=== PATIENT | female | born 1955 | race Two or more races ===

== ENCOUNTER 2021-12-27 12:18 | Inpatient (IN) | payer OTHER ==
[~2021-12-27] VITALS: Ht 152.4 cm; Wt 147.4 kg
[2021-12-29] MEDS ORDERED: XARELTO20 M1 (13:14)
[2021-12-29] MEDS ORDERED: METOPROLOL SUC100 MG (13:14)
[2021-12-29] MEDS ORDERED: SILVER SULFADIA50 GM (13:14)
[2021-12-29] MEDS ORDERED: DICLOFENAC POTA50 MG (13:14)
[2021-12-29] MEDS ORDERED: DICLOFENAC SOD100 GM (13:14)
[2021-12-29] MEDS ORDERED: AMLODIPINE BESY10 MG (13:14)
== END 2022-01-11 22:24 | disposition home or self-care (01) | DRG 593 ==
LOC: ER 12:18 → MEDJ 12-28 22:30
PROVIDERS: ADMIT Internal Medicine; ATTEND Internal Medicine
PROC: BW28ZZZ Computerized Tomography (CT Scan) of Head (ICD-10-PCS; 2021-12-28)
PROC: 4A12X4Z Monitoring of Cardiac Electrical Activity, External Approach (ICD-10-PCS; 2021-12-29)
PROC: B24BZZZ Ultrasonography of Heart with Aorta (ICD-10-PCS; 2021-12-30)
PROC: 02HV33Z Insertion of Infusion Device into Superior Vena Cava, Percutaneous Approach (ICD-10-PCS; 2022-01-04)
PROC: 0HD6XZZ Extraction of Back Skin, External Approach (ICD-10-PCS; principal; 2022-01-08)
PROC: 0HDLXZZ Extraction of Left Lower Leg Skin, External Approach (ICD-10-PCS; 2022-01-08)
PROC: BW21YZZ Computerized Tomography (CT Scan) of Abdomen and Pelvis using Other Contrast (ICD-10-PCS; 2022-01-08)
DX: L89.124 Pressure ulcer of left upper back, stage 4 (principal); L03.116 Cellulitis of left lower limb; L03.313 Cellulitis of chest wall; L03.311 Cellulitis of abdominal wall; I48.92 Unspecified atrial flutter; N17.8 Other acute kidney failure; L03.115 Cellulitis of right lower limb; L08.9 Local infection of the skin and subcutaneous tissue, unspecified; E87.6 Hypokalemia; R60.1 Generalized edema; K42.9 Umbilical hernia without obstruction or gangrene; E66.01 Morbid (severe) obesity due to excess calories; K59.09 Other constipation; Z20.822 Contact with and (suspected) exposure to COVID-19; Z74.01 Bed confinement status; B96.4 Proteus (mirabilis) (morganii) as the cause of diseases classified elsewhere; B95.61 Methicillin susceptible Staphylococcus aureus infection as the cause of diseases classified elsewhere; B95.2 Enterococcus as the cause of diseases classified elsewhere; B96.89 Other specified bacterial agents as the cause of diseases classified elsewhere; I50.810 Right heart failure, unspecified

== ENCOUNTER 2023-06-09 13:28 | Inpatient (IN) | payer OTHER ==
[~2023-06-09] VITALS: Ht 162.6 cm; Wt 181.4 kg
[~2023-06-09 13:28] MED LIST: AMLODIPINE BESY10 MG; DICLOFENAC POTA50 MG; DICLOFENAC SOD100 GM; METOPROLOL SUC100 MG; SILVER SULFADIA50 GM; XARELTO20 M1
[2023-06-09] MEDS ORDERED: 0.9 % SODIUM CHLORIDE 1,000 ML IV STA (14:30)
[2023-06-09 17:03] LABS: HEMATOCRIT 45.5 % (36.0-45.00); HEMOGLOBIN 15.4 g/dL (12.0-15.00); MEAN CORPUSCULAR HEMOGLOBIN 29.8 pg (27.00-32.0); MEAN CORPUSCULAR HGB CONC 33.8 g/dl (32.0-36.0); PLATELET COUNT 160 K/uL (150-450); RED BLOOD COUNT 5.17 M/uL (4.00-6.00); RED CELL DISTRIBUTION WIDTH 14.3 % (11.5-14.5)
[2023-06-09 17:21] LABS: INR 1.02; PARTIAL THROMBOPLASTIN TIME 22.8 SECONDS (22.0-34.0); PROTHROMBIN TIME 10.7 SECONDS (9.0-11.5)
[2023-06-09 17:27] LABS: ALBUMIN 2.8 gm/dL (3.4-5.0); BILIRUBIN TOTAL 0.68 mg/dL (0.3-1.2); BILIRUBIN,CONJUGATED 0.17 mg/dL (0.0-0.2); BILIRUBIN,UNCONJUGATED 0.51 mg/dL (0.0-0.6); CREATININE SERUM 0.94 mg/dL (0.55-1.02); GFR 59.04; TOTAL PROTEIN 6.9 gm/dL (6.4-8.2)
[2023-06-09 17:59] LABS: POTASSIUM 2.91 mEq/L (3.5-5.1)
[2023-06-10] MEDS ORDERED: IPRATROPIUM BROMIDE 0.5 MG/2.5 ML AMPUL.NEB IH SCH
[2023-06-10] MEDS ORDERED: hydrALAZINE HCL 20 MG VIAL IV PRN (00:15)
[2023-06-10] MEDS ORDERED: 0.9 % SODIUM CHLORIDE 1,000 ML IV SCH (00:15)
[2023-06-10] MEDS ORDERED: ACETAMINOPHEN 500 MG GEL..CAP PO PRN (00:15)
[2023-06-10] MEDS ORDERED: INSULIN LISPRO 1,000 UNIT/10 ML UNITS SUBCUTANEO PRN (00:15)
[2023-06-10] MEDS ORDERED: ONDANSETRON HCL 4 MG in 0.9 % SODIUM CHLORIDE 50 ML IV PRN (00:15)
[2023-06-10] MEDS ORDERED: DEXTROSE 50 % IN WATER 0.5 G/ML DISP.SYRIN IV PRN (00:15)
[2023-06-10] MEDS ORDERED: POTASSIUM CHLORIDE IN WATER 100 ML IV SCH (01:00)
[2023-06-10] MEDS ORDERED: CLINDAMYCIN PHOSPHATE 600 MG in 0.9 % SODIUM CHLORIDE 50 ML IV SCH (01:00)
[2023-06-10 02:04] LABS: LDH 349 U/L (84-246); PHOSPHOKINASE CREATININE 166 U/L (26-192)
[2023-06-10 02:55] LABS: ABG PH 7.321 (7.35-7.45)
[2023-06-10 02:56] LABS: ABG PO2 62.5 mmHg (80-100); ABG pCO2 67.1 mmHg (35-45); BASE EXCESS 5.3 mmol/l; BICARBONATE 33.9 mmol/l (23-25); Tco2 35.9 mmol/l; allen test SATISFACTORY; o2 21 %; puncture site RADIAL RIGHT
[2023-06-10 02:57] LABS: SaO2 89.8 %
[2023-06-10] MEDS ORDERED: FAMOTIDINE/PF 20 MG in 0.9 % SODIUM CHLORIDE 8 ML IV PUSH SCH (09:00)
[2023-06-10] MEDS ORDERED: ENOXAPARIN SODIUM 40 MG/0.4 ML SYRINGE SUBCUTANEO SCH (09:00)
[2023-06-10] MEDS ORDERED: NYSTATIN 15 GM,SILVER SULFADIAZINE 50 GM,ZINC OXIDE 30 GM TOP SCH (10:58)
[2023-06-10 16:11] LABS: LDH 194 U/L (84-246); PHOSPHOKINASE CREATININE 103 U/L (26-192)
[2023-06-10 18:01] LABS: ABG PH 7.378 (7.35-7.45); ABG PO2 75.2 mmHg (80-100); ABG pCO2 58.3 mmHg (35-45); BASE EXCESS 6.4 mmol/l; BICARBONATE 33.5 mmol/l (23-25); SaO2 94.8 %; Tco2 35.3 mmol/l
[2023-06-10 18:02] LABS: allen test SATISFACTORY; o2 35 %; puncture site RADIAL LEFT
[2023-06-10 21:12] LABS: LDH 209 U/L (84-246); PHOSPHOKINASE CREATININE 94 U/L (26-192)
[2023-06-11 07:42] LABS: ALBUMIN 2.4 gm/dL (3.4-5.0); BILIRUBIN TOTAL 0.48 mg/dL (0.3-1.2); BILIRUBIN,CONJUGATED 0.11 mg/dL (0.0-0.2); BILIRUBIN,UNCONJUGATED 0.37 mg/dL (0.0-0.6); CALCIUM 8.4 mg/dL (8.5-10.1); CHOL HDL RATIO 3.3 (0-5.0); CREATININE SERUM 0.55 mg/dL (0.55-1.02); GFR 109.59; POTASSIUM 3.64 mEq/L (3.5-5.1); TOTAL PROTEIN 5.4 gm/dL (6.4-8.2)
[2023-06-11 07:45] LABS: C-REACTIVE PROTEIN 1.15 MG/DL (0.00-0.29)
[2023-06-11 08:43] LABS: PROTHROMBIN TIME 10.5 SECONDS (9.0-11.5)
[2023-06-11 08:49] LABS: URINE WBC 111.4 uL (0.0-23.2)
[2023-06-11 08:50] LABS: URINE EPITHELIAL CELLS 6.9 uL (0.0-38.8)
[2023-06-11 08:51] LABS: PH,URINE 5.5 (5.0-8.0); URINE APPEARANCE Cloudy; URINE BACTERIA 144.8 uL (0.0-1933); URINE BILIRRUBIN Negative (NEGATIVE); URINE BLOOD Moderate; URINE COLOR Yellow; URINE GLUCOSE Negative (NEGATIVE); URINE LEUKOCYTE Trace; URINE NITRATE Negative; URINE PROTEIN Trace (NEGATIVE); URINE RBC 126.6 uL (0.0-20.8)
[2023-06-11 09:12] LABS: HEMATOCRIT 41.9 % (36.0-45.00); MEAN CELL VOLUME 89.3 fL (80.00-100.00); MEAN CORPUSCULAR HEMOGLOBIN 29.8 pg (27.00-32.0); MEAN CORPUSCULAR HGB CONC 33.4 g/dl (32.0-36.0); PLATELET COUNT 152 K/uL (150-450); RED BLOOD COUNT 4.69 M/uL (4.00-6.00); RED CELL DISTRIBUTION WIDTH 14.7 % (11.5-14.5)
[2023-06-11 10:00] LABS: ERYTHROCYTE SEDIMENTATION RATE 23 mm/hr
[2023-06-11] MEDS ORDERED: GUAIFENESIN/DEXTROMETHORPHAN 100 MG/5 ML ML PO SCH (12:00)
[2023-06-12] MEDS ORDERED: DIPHENHYDRAMINE HCL 50 MG/ML VIAL 1ML IV PRN (18:00)
[2023-06-13] MEDS ORDERED: DIPHENHYDRAMINE HCL/ZINC ACET 28.3 GM CREAM.GM. TOP SCH (09:00)
[2023-06-13 13:08] LABS: ABG PH 7.407 (7.35-7.45); ABG PO2 66.9 mmHg (80-100); ABG pCO2 53.8 mmHg (35-45); SaO2 93.5 %
[2023-06-13 13:09] LABS: BASE EXCESS 6.7 mmol/l; BICARBONATE 33.1 mmol/l (23-25); Tco2 34.8 mmol/l; allen test SATISFACTORY; puncture site RADIAL RIGHT
[2023-06-13 13:10] LABS: o2 21 %
[2023-06-13] MEDS ORDERED: ENOXAPARIN SODIUM 60 MG/0.6 ML SYRINGE SUBCUTANEO SCH (21:00)
[2023-06-13] MEDS ORDERED: levoFLOXacin IN DEXTROSE 5 % 150 ML IV SCH (21:54)
[2023-06-14] MEDS ORDERED: levoFLOXacin IN DEXTROSE 5 % 150 ML IV SCH (21:00)
== END 2023-06-14 17:43 | disposition home or self-care (01) | DRG 602 ==
LOC: ER 13:28 → MEDI 06-10 00:56
PROVIDERS: General Practice; Internal Medicine Pulmonary Disease; ADMIT Internal Medicine; ATTEND Internal Medicine
PROC: B54DZZZ Ultrasonography of Bilateral Lower Extremity Veins (ICD-10-PCS; principal; 2023-06-09)
PROC: 3E0F7GC Introduction of Other Therapeutic Substance into Respiratory Tract, Via Natural or Artificial Opening (ICD-10-PCS; 2023-06-10)
PROC: B44HZZZ Ultrasonography of Bilateral Lower Extremity Arteries (ICD-10-PCS; 2023-06-10)
PROC: 5A0945A Assistance with Respiratory Ventilation, 24-96 Consecutive Hours, High Flow/Velocity Cannula (ICD-10-PCS; 2023-06-10)
DX: L03.115 Cellulitis of right lower limb (principal); J96.02 Acute respiratory failure with hypercapnia; L97.818 Non-pressure chronic ulcer of other part of right lower leg with other specified severity; E66.2 Morbid (severe) obesity with alveolar hypoventilation; Z68.44 Body mass index [BMI] 60.0-69.9, adult; I83.018 Varicose veins of right lower extremity with ulcer other part of lower leg; I87.2 Venous insufficiency (chronic) (peripheral); B95.2 Enterococcus as the cause of diseases classified elsewhere; R60.0 Localized edema